=== PATIENT | male | born 1990 | race Caucasian/White ===

== ENCOUNTER 2020-09-03 07:21 | Outpatient (CLI) | payer BC ==
[2020-09-03 16:18] LABS: #Basophils 0.1 10x3/uL (0.0-0.2); #Eosinphils 0.5 10x3/uL (0.0-0.5); #Monocytes 0.4 10x3/uL (0.0-1.1); #Neutrophils 4.7 10x3/uL (1.5-8.4); %Basophils 0.7 % (0.0-2.0); %Eosinophils 5.5 % (0.0-6.0); %Lymphocytes 34.1 % (18.0-47.0); %Monocytes 4.6 % (0.0-10.0); %Neutrophils 54.8 % (40.0-75.0); Hemoglobin 16.7 g/dL (14.0-18.0); Mean Corpuscular HGB CONC 35.4 G/DL (32.0-36.0); Mean Corpuscular Hemoglobin 28.9 PG (27.0-33.0); Mean Corpuscular Volume 81.7 fl (80.0-100.0); Mean Platelet Volume 11.9 fl (7.4-10.4); Platelet Count 301 10x3/uL (130-400); Red Blood Cell (RBC) Count 5.78 10x6/uL (4.40-5.80); White Blood Cell (WBC) Count 8.7 10x3/uL (4.5-11.0)
[2020-09-03 16:22] LABS: Anion Gap 14 mmol/L (10-20); BUN (Urea Nitrogen) 9 mg/dL (8.9-20.6); Calc. Creatinine Clearance 0 mL/min (70-130); Calcium 10.1 mg/dL (7.8-10.44); Carbon Dioxide 26 mmol/L (22-29); Chloride 105 mmol/L (98-107); Glucose 83 mg/dL (70-105); Potassium 4.4 mmol/L (3.5-5.1); Sodium 141 mmol/L (136-145)
[2020-09-04 07:04] LABS: SARS-CoV-2 PCR by NAA Not Detected (NotDetected)
== END 2020-09-03 07:22 | disposition home or self-care (01) ==
LOC: LABBT 07:21
PROVIDERS: ATTEND Specialist
DX: Z01.812 Encounter for preprocedural laboratory examination (principal); K40.90 Unilateral inguinal hernia, without obstruction or gangrene, not specified as recurrent; Z20.822 Contact with and (suspected) exposure to COVID-19
CPT/HCPCS: 80048; 85025; 87635; U0003; U0005

== ENCOUNTER 2020-09-06 07:56 | Day surgery (SDC) | payer BC ==
[2020-09-03 15:21] VITALS: BMI 28.2
[2020-09-06] MEDS ORDERED: Ketorolac Tromethamine 30 MG/ML VIAL ONE (08:51)
[2020-09-06] MEDS ORDERED: Acetaminophen 500 MG TAB ONE (08:51)
[2020-09-06] MEDS ORDERED: Lidocaine 1% PF 5 ML VIAL ONE (10:48)
[2020-09-06] MEDS ORDERED: PROPOFOL 200 MG/20 ML VIAL ONE (10:48)
[2020-09-06] MEDS ORDERED: Dexamethasone 20 MG/5 ML VIAL ONE (10:48)
[2020-09-06] MEDS ORDERED: Ondansetron PF 4 MG/2 ML Vial ONE (10:48)
[2020-09-06] MEDS ORDERED: Rocuronium Bromide 10 MG/ML (10ML VIAL) ONE (10:48)
[2020-09-06] MEDS ORDERED: Glycopyrrolate 0.2 MG/ML 5 ML SYRINGE ONE (10:48)
[2020-09-06] MEDS ORDERED: XYLOCAINE 2%-EPI 1:100,000 20 ML VIAL ONE (11:39)
[2020-09-06] MEDS ORDERED: Bupivacaine 0.25% HCL 30 ML VIAL ONE (11:39)
[2020-09-06] MEDS ORDERED: Fentanyl 100 MCG/2 ML VIAL ONE ×2 (11:42→13:46)
[2020-09-06] MEDS ORDERED: SUGAMMADEX SODIUM 200 MG/2 ML VIAL ONE (13:11)
[2020-09-06] MEDS ORDERED: HYDROcodone/Acetaminophen 5/325 mg Tablet ONE (14:56)
[2020-09-06] MEDS ORDERED: Ondansetron ODT 4 MG TAB ONE (15:49)
--- NOTE | 2020-09-07 08:41 | OP ---
DATE OF PROCEDURE: 09/06/2020 PREOPERATIVE DIAGNOSIS: Right inguinal hernia. POSTOPERATIVE DIAGNOSIS: Right inguinal hernia, direct. OPERATION PERFORMED: Robotic-assisted right inguinal hernia repair with large 3DMax mesh patch. ANESTHESIA: General endotracheal. INDICATIONS: The patient is a 30-year-old white male. He presents with easily visible and palpable right inguinal hernia. He is taken to the operating room at this time for repair. DESCRIPTION OF PROCEDURE: Informed consent was obtained. The patient was taken to the operating where general endotracheal anesthesia was obtained with the patient in supine position. Abdomen was prepped with ChloraPrep and Serrano catheter was placed. The patient was draped in usual sterile fashion. Local anesthetic was infiltrated using a mixture of 1% lidocaine with epinephrine 0.25% Marcaine. An 11 mm supraumbilical incision was created and Veress needle was passed through this incision. Pneumoperitoneum was established using carbon dioxide up to pressure of 15 mmHg. An 11 mm balloon-tipped trocar port was passed. Camera was passed through the port and under direct vision, two 8 mm robotic ports were placed at the supraumbilical level on either side of midline. The robot was docked to the 3 ports of the camera and the operation was continued from the robotic console. Examination of the left groin reveals no evidence of any hernia. The right groin shows an easily visible direct inguinal hernia. A transverse peritoneal incision was created and preperitoneal dissection was carried out extending inferiorly. The pubic tubercle was dissected medially and the iliopubic tract was dissected laterally. The hernia contents were dissected out of the direct hernia space. There was a tiny indirect hernia as well and the peritoneum was dissected from this. The peritoneum was widely dissected posteriorly. A large 3DMax mesh patch was then obtained and placed in the preperitoneal space. It was secured in place with three interrupted sutures of 2-0 Vicryl, placing one to the pubic tubercle and two to the anterior abdominal wall on either side of the epigastric vessels. The peritoneum was then closed with a running suture of 3-0 Stratafix. The fascial defect at the supraumbilical port was closed with 0 Vicryl suture using a GraNee needle. All ports and instruments were removed under direct vision. Pneumoperitoneum was carefully evacuated. A 0.25% Marcaine with epinephrine was infiltrated at each port site. Skin edges approximated with 4-0 Monocryl subcuticular suture and Dermabond was placed externally. There were no complications. The patient tolerated the procedure well and was taken to recovery room in stable condition. Job ID: [id number]
== END 2020-09-06 16:06 | disposition home or self-care (01) ==
LOC: SDC 07:56
PROVIDERS: ATTEND Specialist
PROC: 0YU54JZ Supplement Right Inguinal Region with Synthetic Substitute, Percutaneous Endoscopic Approach (ICD-10-PCS; principal; 2020-09-06)
DX: K40.90 Unilateral inguinal hernia, without obstruction or gangrene, not specified as recurrent (principal); F17.290 Nicotine dependence, other tobacco product, uncomplicated
CPT/HCPCS: C1781; J0690; J1100; J1885; J2405; J2704; J3010; Q0162; S0020